=== PATIENT | male | born 1990 | race Caucasian/White ===

== ENCOUNTER 2016-05-03 09:35 | Emergency (ER) | payer OTHER ==
[2016-05-03 09:47] VITALS: BP 144/93; PULSE 91; O2SAT 97
[2016-05-03] MEDS ORDERED: CLEOCIN 150 MG CAPSULE PO ONE (09:58)
[2016-05-03] MEDS ORDERED: NORCO 5/325 MG PO ONE (09:59)
[2016-05-03] MEDS ORDERED: CLEOCIN 150 MG CAPSULE ONE (10:03)
[2016-05-03] MEDS ORDERED: NORCO 5/325 MG ONE (10:03)
--- NOTE | 2016-05-03 10:05 | ERPHSYRPT ---
- History of Present Illness Time Seen by Provider: 05/03/16 09:59 Source: patient Exam Limitations: no limitations Patient Subjective Stated Complaint: PT COMLAINS OF RIGHT SIDE JAW AND FACIAL PAINX 3 DAYS. DENIES ANY TRAUMA TO THE SIDE OF HIS FACE. Triage Nursing Assessment: PT ALERT WARM AND DRY RESP EASY NON LABORED NO FACIAL SWELLING NOTED TO RIGHT SIDE OF FACE. Physician History: 25 y/o male comes to the ER with complaints of right sided jaw pain that started 3 days ago. Pt admits to having poor dentition and has had issues with tooth pain in the past. Pt describes the pain as sharp, constant, as high as 10/ 10 and not relieved by motrin. No fever or chills. Timing/Duration: gradual onset Severity: severe ENT Location: dental Prearrival Treatment: no prearrival treatment Modifying Factors: Improves With: nothing Associated Symptoms: denies symptoms Allergies/Adverse Reactions: Penicillins Allergy (Unknown, Verified 01/10/16 11:15) Home Medications: No Home Meds 1 [facility] UD 01/10/16 [History] Hx Tetanus, Diphtheria Vaccination/Date Given: Yes Hx Influenza Vaccination/Date Given: No Hx Pneumococcal Vaccination/Date Given: No Immunizations Up to Date: Yes - Review of Systems Constitutional: No Fever, No Chills Eyes: No Symptoms Ears, Nose, & Throat: No Symptoms, Mouth Pain Respiratory: No Cough, No Dyspnea Cardiac: No Chest Pain, No Edema, No Syncope Abdominal/Gastrointestinal: No Abdominal Pain, No Nausea, No Vomiting, No Diarrhea Genitourinary Symptoms: No Dysuria Musculoskeletal: No Back Pain, No Neck Pain Skin: No Rash Neurological: No Dizziness, No Focal Weakness, No Sensory Changes Psychological: No Symptoms Endocrine: No Symptoms All Other Systems: Reviewed and Negative - Past Medical History Pertinent Past Medical History: Yes Neurological History: No Pertinent History ENT History: No Pertinent History Cardiac History: Hypertension Respiratory History: No Pertinent History Endocrine Medical History: No Pertinent History Musculoskeletal History: No Pertinent History GI Medical History: No Pertinent History History: No Pertinent History Psycho-Social History: No Pertinent History Male Reproductive Disorders: No Pertinent History Other Medical History: HTN - Past Surgical History Past Surgical History: No Neuro Surgical History: No Pertinent History Cardiac: No Pertinent History Respiratory: No Pertinent History Gastrointestinal: No Pertinent History Genitourinary: No Pertinent History Musculoskeletal: No Pertinent History Male Surgical History: No Pertinent History - Social History Smoking Status: Never smoker How long have you smoked: 7 YRS. Exposure to second hand smoke: No Drug Use: none Patient Lives Alone: No - Nursing Vital Signs Nursing Vital Signs: Initial Vital Signs Temperature 98.1 F Temperature Source Oral Pulse Rate 91 Respiratory Rate 18 Blood Pressure [Right Arm] 144/93 Pain Intensity 9 - Physical Exam General Appearance: moderate distress, alert Eye Exam: bilateral eye: PERRL, EOMI Nasal Exam: normal inspection Throat Exam: pharynx normal, dental tenderness, moist mucus membranes, No tonsillar exudate Neck Exam: supple Cardiovascular/Respiratory Exam: normal breath sounds, regular rate/rhythm Abdominal Exam: non-tender, soft Neurologic Exam: alert, oriented x 3, sensation nml, No motor deficits Skin Exam: normal color, warm, dry SpO2: 97 Oxygen Delivery: Room Air - Course Nursing assessment & vital signs reviewed: Yes Ordered Tests: Medication Summary Generic Name Dose Route Start Last Admin Trade Name Freq PRN Reason Stop Dose Admin Acetaminophen/Hydrocodone Bitart 1 tab 05/03/16 09:59 [place] 5/325 Mg PO 05/03/16 10:00 STAT ONE Clindamycin HCl 150 mg 05/03/16 09:58 Cleocin 150 Mg Capsule PO 05/03/16 09:59 STAT ONE - Progress Progress: unchanged Progress Note: 05/03/16 10:02 Pt has tooth infection and will be d/c home on clindamycin and norco for pain. Pt has agreed to F/U with a dentist. - Departure Time of Disposition: 10:02 Departure Disposition: Home Clinical Impression: Dental infection Condition: Stable Critical Care Time: No Instructions: Tooth Decay Additional Instructions: Follow up with your dentist in the next 3-4 days. Finish the antibiotics until completion. Prescriptions: Hydrocodone Bit/Acetaminophen [[place] 5-325 Tablet] 1 each PO Q6H PRN PRN #15 tablet PRN Reason: Pain Clindamycin HCl 150 mg PO TID #29 capsule
== END 2016-05-03 10:26 | disposition home or self-care (01) ==
LOC: ED 09:35
DX: K04.7 Periapical abscess without sinus (principal)
CPT/HCPCS: 99281; 99282; 99283

== ENCOUNTER 2020-12-05 14:26 | Emergency (ER) | payer OTHER, SELFPAY ==
--- NOTE | 2020-12-05 15:03 | ERPHSYRPT ---
- History of Present Illness Time Seen by Provider: 12/05/20 14:55 Source: patient Exam Limitations: no limitations Patient Subjective Stated Complaint: Patient c/o right jaw pain. States he can't eat due to the pain. He called Dr. Dennison but states he can't get an a ppointment until the end of December. Patient states that Dr. Dennison instructed him that his tooth could not be removed as long as it is infected and that he needed to see his MD. Triage Nursing Assessment: Patient walked back to ER room per self without difficulties. Patient alert and oriented and able to answer questions appropiately. Back right tooth with noted cavities. Tooth is brown/yellow in color. Gums around tooth are swollen and inflammed. Physician History: Patient is a 30-year-old white male who presents with complaint of right jaw pain for several days. Initially the pain was so generalized he cannot localize well but the pain has since localized to the right mandibular second molar. Timing/Duration: gradual onset Severity: severe ENT Location: mouth Prearrival Treatment: over the counter meds Modifying Factors: Improves With: nothing Associated Symptoms: jaw pain, tooth pain Allergies/Adverse Reactions: Penicillins Allergy (Unknown, Verified 12/05/20 14:49) Home Medications: No Home Meds [No Home Meds] 1 ea UD 01/10/16 [History] Trazodone HCl 100 mg PO HS 12/05/20 [History] armodafiniL [Armodafinil] 50 mg PO DAILY 12/05/20 [History] Hx Tetanus, Diphtheria Vaccination/Date Given: Yes Hx Influenza Vaccination/Date Given: No Hx Pneumococcal Vaccination/Date Given: No Immunizations Up to Date: Yes Travel Risk - International Travel Have you traveled outside of the country in past 3 weeks: No - Coronavirus Screening Are you exhibiting any of the following symptoms?: No Close contact with a COVID-19 positive Pt in past 14-21 Days: No - Vaccine Status Have you recieved a Covid-19 vaccination: No - Review of Systems Constitutional: No Fever, No Chills Eyes: No Symptoms Ears, Nose, & Throat: No Symptoms Respiratory: No Cough, No Dyspnea Cardiac: No Chest Pain, No Edema, No Syncope Abdominal/Gastrointestinal: No Abdominal Pain, No Nausea, No Vomiting, No D iarrhea Genitourinary Symptoms: No Dysuria Musculoskeletal: No Back Pain, No Neck Pain Skin: No Rash Neurological: No Dizziness, No Focal Weakness, No Sensory Changes Psychological: No Symptoms Endocrine: No Symptoms All Other Systems: Reviewed and Negative - Past Medical History Pertinent Past Medical History: Yes Neurological History: No Pertinent History ENT History: No Pertinent History Cardiac History: Hypertension Respiratory History: No Pertinent History Endocrine Medical History: No Pertinent History Musculoskeletal History: No Pertinent History GI Medical History: No Pertinent History History: No Pertinent History Psycho-Social History: No Pertinent History Male Reproductive Disorders: No Pertinent History Other Medical History: HTN, Insomnia - Past Surgical History Past Surgical History: No Neuro Surgical History: No Pertinent History Cardiac: No Pertinent History Respiratory: No Pertinent History Gastrointestinal: No Pertinent History Genitourinary: No Pertinent History Musculoskeletal: No Pertinent History Male Surgical History: No Pertinent History - Social History Smoking Status: Current every day smoker How long have you smoked: 8-10 years Exposure to second hand smoke: No Drug Use: none Patient Lives Alone: No - Nursing Vital Signs Nursing Vital Signs: Initial Vital Signs Temperature 97.2 F 12/05/20 14:34 Pulse Rate 93 H 12/05/20 14:34 Respiratory Rate 20 12/05/20 14:34 Blood Pressure 157/107 12/05/20 14:34 O2 Sat by Pulse Oximetry 96 12/05/20 14:34 Pain Scale Pain Intensity 10 - Physical Exam General Appearance: mild distress, alert Eye Exam: bilateral eye: PERRL, EOMI Nasal Exam: normal inspection Throat Exam: pharynx normal, dental tenderness (Dental tenderness over the mandibular right posterior area excessive drooling), moist mucus membranes, No tonsillar exudate Neck Exam: supple Cardiovascular/Respiratory Exam: normal breath sounds, regular rate/rhythm Abdominal Exam: non-tender, soft Neurologic Exam: alert, oriented x 3, sensation nml, No motor deficits Skin Exam: normal color, warm, dry SpO2: 96 - Course Nursing assessment & vital signs reviewed: Yes - Progress Progress: unchanged - Departure Departure Disposition: Home Clinical Impression: Dental abscess Condition: Stable Critical Care Time: No Referrals: AYO CORTES MD [Primary Care Provider] - Instructions: Dental Pain (DC) Prescriptions: clindamycin HCL [Cleocin HCl] 300 mg PO TID 7 Days #21 Lidocaine HCl [Lidocaine HCl Viscous] 20 mg MM Q2H PRN 3 Days #20 ml PRN Reason: Pain Diclofenac Sodium 50 mg [Voltaren 50 mg] 50 mg PO Q8H PRN 5 Days #15 PRN Reason: Pain
[2020-12-05 15:13] VITALS: BP 138/84; PULSE 84; O2SAT 98
== END 2020-12-05 15:13 | disposition home or self-care (01) ==
LOC: ED 14:26
DX: K04.7 Periapical abscess without sinus (principal)
CPT/HCPCS: 99283

== ENCOUNTER 2021-05-16 13:32 | Emergency (ER) | payer OTHER ==
[2021-05-16 13:42] VITALS: O2SAT 98
[2021-05-16] MEDS ORDERED: TORAdol 30 mg Injection ONE (13:56)
[2021-05-16] MEDS: TORAdol 30 mg Injection IM ONE (13:57)
--- NOTE | 2021-05-16 14:09 | ERPHSYRPT ---
- History of Present Illness Source: patient Exam Limitations: no limitations Patient Subjective Stated Complaint: pt here for pain to left side of neck and left shoulder, he states he fell on trailer this morning Triage Nursing Assessment: pt alert, resp easy, skin w/d/p, face mask in place, no swelling noted, has tendeness Physician History: 30 yo wm cc of L shoulder pain after near fall at friend's house while holding a chain w his L hand. Pt is R handed and has a h/o L clavicle fx in the past. He did not hit the ground and denies head injury/cervical injury/T-Lspine injury/hip injury/LE injury. Chest pain/dyspnea is denied. Occurred: hours ago (3 hrs ago) Method of Injury: fell (Near fall) Quality: aching Severity of Pain-Max: moderate Severity of Pain-Current: moderate Extremities Pain Location: shoulder: left Modifying Factors: Improves With: movement Associated Symptoms: No back pain, No chills, No chest discomfort, No chest pain, No dyspnea, No fever, No jaw pain, No nausea, No neck pain, No sweating, No short of breath, No vomiting Allergies/Adverse Reactions: Penicillins Allergy (Unknown, Verified 05/16/21 13:43) Home Medications: Trazodone HCl 100 mg PO HS 12/05/20 [History] Dextroamphetamine/Amphetamine [Adderall 7.5 mg Tablet] 1 ea DAILY 05/16/21 [History] Hx Tetanus, Diphtheria Vaccination/Date Given: No Hx Influenza Vaccination/Date Given: No Hx Pneumococcal Vaccination/Date Given: No Immunizations Up to Date: Yes Travel Risk - International Travel Have you traveled outside of the country in past 3 weeks: No - Coronavirus Screening Are you exhibiting any of the following symptoms?: No Close contact with a COVID-19 positive Pt in past 14-21 Days: No - Vaccine Status Have you recieved a Covid-19 vaccination: No - Review of Systems Constitutional: No Symptoms Eyes: No Symptoms Ears, Nose, & Throat: No Symptoms Respiratory: No Symptoms Cardiac: No Symptoms Abdominal/Gastrointestinal: No Symptoms Genitourinary Symptoms: No Symptoms Skin: No Symptoms Neurological: No Symptoms Psychological: No Symptoms Endocrine: No Symptoms Hematologic/Lymphatic: No Symptoms Immunological/Allergic: No Symptoms - Past Medical History Pertinent Past Medical History: Yes Neurological History: No Pertinent History ENT History: No Pertinent History Cardiac History: Hypertension Respiratory History: No Pertinent History Endocrine Medical History: No Pertinent History Musculoskeletal History: No Pertinent History GI Medical History: No Pertinent History History: No Pertinent History Psycho-Social History: No Pertinent History Male Reproductive Disorders: No Pertinent History Other Medical History: HTN, Insomnia - Past Surgical History Past Surgical History: No Neuro Surgical History: No Pertinent History Cardiac: No Pertinent History Respiratory: No Pertinent History Gastrointestinal: No Pertinent History Genitourinary: No Pertinent History Musculoskeletal: No Pertinent History Male Surgical History: No Pertinent History - Social History Smoking Status: Current every day smoker How long have you smoked: 8-10 years Exposure to second hand smoke: No Drug Use: none Patient Lives Alone: No Significant Family History: no pertinent family hx - Nursing Vital Signs Nursing Vital Signs: Initial Vital Signs Temperature 97.2 F 05/16/21 13:37 Pulse Rate 97 H 05/16/21 13:37 Respiratory Rate 18 05/16/21 13:37 Blood Pressure 167/111 05/16/21 13:37 O2 Sat by Pulse Oximetry 98 05/16/21 13:37 Pain Scale Pain Intensity 4 Hypertensive - Physical Exam General Appearance: no apparent distress Eyes, Ears, Nose, Throat Exam: normal ENT inspection, TMs normal, pharynx normal, moist mucous membranes Neck Exam: normal inspection, non-tender (C-spine NTTP), No supple, No full range of motion, No Brudzinski, No Kernig's, No meningismus Cardiovascular/Respiratory Exam: chest non-tender, normal breath sounds, regular rate/rhythm, heart sounds normal Abdominal Exam: non-tender, soft, no organomegaly Back Exam: normal inspection, normal range of motion, vertebral tenderness (No T-Lspine TTP), No CVA tenderness Shoulder Exam: pain (TTP superior border of L scapula,L posterior cervical musculature, and medial border of L scapula/Pain w abduction/Minimal pain w external rotation/Good radial pulse, distal sensatrion, and capillary return) Elbow/Forearm Exam: normal inspection Hand Exam: normal inspection DTR - Upper Extremity Exam: bicep (R): 2+, bicep (L): 2+ Neuro/Tendon Exam: normal sensation, normal motor functions, normal tendon functions, responds to pain, no evidence tendon injury, No motor deficit, No sensory deficit Mental Status Exam: alert, oriented x 3, cooperative Skin Exam: normal color, warm, dry SpO2 Interpretation: normal SpO2: 98 O2 Delivery: Room Air - Course Nursing assessment & vital signs reviewed: Yes - Radiology Exams Shoulder X-ray Interpretation: Discussed w/ radiologist (L shoulder neg for acute injury/Old clavicular fx) Ordered Tests: Active Orders 24 hr Category Date Time Status Sling Application STAT Care 05/16/21 14:35 Completed SHOULDER Stat Exams 05/16/21 Completed Medication Summary Discontinued Medications Generic Name Dose Route Start Last Admin Trade Name Freq PRN Reason Stop Dose Admin Ketorolac Tromethamine 60 mg 05/16/21 13:54 05/16/21 13:57 Ketorolac Tromethamine 30 Mg/Ml Inj IM 05/16/21 13:55 60 mg STAT ONE Administration Ketorolac Tromethamine Confirm 05/16/21 13:56 Ketorolac Tromethamine 30 Mg/Ml Inj Administered 05/16/21 13:57 Dose 60 mg .ROUTE .STK-MED ONE - Progress Progress: improved Progress Note: 05/16/21 14:32 60mg IM Toradol Sling per nursing/NVI 05/16/21 20:04 Pt wants to f/u w PCP about BP and does not want treatment at this time Counseled pt/family regarding: diagnosis, need for follow-up, rad results - Departure Departure Disposition: Home Clinical Impression: Left shoulder strain, Trapezius muscle strain, Hypertension Condition: Stable Critical Care Time: No Referrals: DOCTOR,NO FAMILY [Primary Care Provider] - Follow up/PCP as directed ORTHO - LOYDA ORO NP [NON-STAFF PHY W/O PRIVILEGES] - Follow up/PCP as directed Instructions: Shoulder Sprain (DC) Additional Instructions: Ice to shoulder for 12-24 hours Heat after 24 hours Lodine/Norflex for pain Follow up w [facility] M-Fr 8-10AM No lifting over 10 lbs w left arm until cleared by ortho clinic Forms: Work/School Release Form Prescriptions: Etodolac 400 mg [Lodine 400 mg] 400 mg PO BID PRN PRN #14 tablet PRN Reason: Pain Orphenadrine Citrate 100 mg [Norflex 100 MG Tablet] 100 mg PO BID PRN #14 tab PRN Reason: Pain
--- NOTE | 2021-05-16 14:24 | XRAY ---
Indication: Pain following fall. Comparison: June 17, 2020. 3 view left shoulder again demonstrates old clavicle shaft fracture and left lung calcified granuloma. No new/acute bony, articular, or soft tissue abnormalities.
[2021-05-16 14:36] VITALS: PULSE 94
[2021-05-16 14:37] VITALS: BP 161/111
== END 2021-05-16 14:48 | disposition home or self-care (01) ==
LOC: ED 13:32
DX: S46.912A Strain of unspecified muscle, fascia and tendon at shoulder and upper arm level, left arm, initial encounter (principal); S29.012A Strain of muscle and tendon of back wall of thorax, initial encounter; X50.0XXA Overexertion from strenuous movement or load, initial encounter; I10 Essential (primary) hypertension; Z79.899 Other long term (current) drug therapy
CPT/HCPCS: 73030; 96372; 99284; J1885

== ENCOUNTER 2021-07-20 12:30 | Emergency (ER) | payer OTHER ==
[2021-07-20] MEDS ORDERED: KEFLEX 500 MG PO ONE (13:13)
[2021-07-20] MEDS ORDERED: Adacel Vial IM ONE ×2 (13:13→13:32)
--- NOTE | 2021-07-20 13:19 | ERPHSYRPT ---
- History of Present Illness Time Seen by Provider: 07/20/21 12:45 Source: patient Exam Limitations: no limitations Patient Subjective Stated Complaint: Pt states "I was carrying my new windows and I stumbled and tried to push my away and my hand went through it." Triage Nursing Assessment: Pt presented alert and oriented x 3, skin pw Pt ambulates with an upright steady gait, able to sepak in ella full senteneces. Pt has laceration noted to his left thumb on knuckle Physician History: This is a right-handed 31-year-old white male who fell into a window on outstretched hand by accident suffering a laceration to his left thumb. Patient states he is not up-to-date on his tetanus status. Patient also states that he is allergic to penicillin but has taken Keflex in the past. Patient has no other injuries. Occurred: just prior to arrival Quality: constant, throbbing Severity of Pain-Max: moderate Severity of Pain-Current: moderate Extremities Pain Location: thumb: left Modifying Factors: Improves With: movement Associated Symptoms: none Allergies/Adverse Reactions: Penicillins Allergy (Unknown, Verified 05/16/21 13:43) Home Medications: Trazodone HCl 100 mg PO HS 12/05/20 [History] Dextroamphetamine/Amphetamine [Adderall 7.5 mg Tablet] 1 ea DAILY 05/16/21 [History] Hx Tetanus, Diphtheria Vaccination/Date Given: No Hx Influenza Vaccination/Date Given: No Hx Pneumococcal Vaccination/Date Given: No Immunizations Up to Date: Yes Travel Risk - International Travel Have you traveled outside of the country in past 3 weeks: No - Coronavirus Screening Are you exhibiting any of the following symptoms?: No Close contact with a COVID-19 positive Pt in past 14-21 Days: No - Vaccine Status Have you recieved a Covid-19 vaccination: No - Review of Systems Constitutional: No Symptoms Eyes: No Symptoms Ears, Nose, & Throat: No Symptoms Respiratory: No Symptoms Cardiac: No Symptoms Abdominal/Gastrointestinal: No Symptoms Genitourinary Symptoms: No Symptoms Musculoskeletal: Injury (left thumb) Skin: Other (laceration, dorsal aspect left thumb) Neurological: No Symptoms Psychological: No Symptoms Endocrine: No Symptoms Hematologic/Lymphatic: No Symptoms Immunological/Allergic: No Symptoms All Other Systems: Reviewed and Negative - Past Medical History Pertinent Past Medical History: Yes Neurological History: No Pertinent History ENT History: No Pertinent History Cardiac History: Hypertension Respiratory History: No Pertinent History Endocrine Medical History: No Pertinent History Musculoskeletal History: No Pertinent History GI Medical History: No Pertinent History History: No Pertinent History Psycho-Social History: No Pertinent History Male Reproductive Disorders: No Pertinent History Other Medical History: HTN, Insomnia - Past Surgical History Past Surgical History: No Neuro Surgical History: No Pertinent History Cardiac: No Pertinent History Respiratory: No Pertinent History Gastrointestinal: No Pertinent History Genitourinary: No Pertinent History Musculoskeletal: No Pertinent History Male Surgical History: No Pertinent History - Social History Smoking Status: Current every day smoker How long have you smoked: 8-10 years Exposure to second hand smoke: No Drug Use: none Patient Lives Alone: No Significant Family History: no pertinent family hx - Nursing Vital Signs Nursing Vital Signs: Initial Vital Signs Temperature 98 F 07/20/21 12:34 Pulse Rate 120 H 07/20/21 12:34 Respiratory Rate 20 07/20/21 12:34 Blood Pressure 156/92 07/20/21 12:34 O2 Sat by Pulse Oximetry 95 07/20/21 12:34 Pain Scale Pain Intensity 5 - Physical Exam General Appearance: no apparent distress, alert, anxiety Eyes, Ears, Nose, Throat Exam: normal ENT inspection, moist mucous membranes Neck Exam: normal inspection, non-tender, supple, full range of motion Cardiovascular/Respiratory Exam: chest non-tender, no respiratory distress Abdominal Exam: non-tender Back Exam: normal inspection Shoulder Exam: normal inspection, non-tender, no evidence of injury, normal ROM Elbow/Forearm Exam: normal inspection, non-tender, no evidence of injury, normal ROM Wrist Exam: normal inspection, non-tender, no evidence of injury, normal ROM Hand Exam: laceration (1.5 cm dorsal aspect proximal left thumb), soft tissue tenderness, swelling (Mild venous oozing from the laceration site. Difficult to determine if patient has tendon injury secondary to painful flexion and extension of the thumb. After injection with lidocaine, he appears to be flexing and extending his left thumb more readily but not to a normal status.) Neuro/Tendon Exam: normal sensation, normal motor functions (Difficult to assess secondary to pain), normal tendon functions (Difficult to assess secondary to pain), responds to pain Mental Status Exam: alert, oriented x 3, cooperative Skin Exam: normal color, warm, dry SpO2 Interpretation: normal SpO2: 95 O2 Delivery: Room Air Procedures - Laceration/Wound Repair Left Dorsal Finger Time of Procedure: 12:55 Wound Location: Left, hand (Dorsal aspect left thumb) Wound Length (cm): 1.5 Wound's Depth, Shape: superficial Wound Explored: clean (No obvious foreign body. Assessment was performed to the base in a bloodless field.) Irrigated: Yes Hibiclens Prep: Yes Anesthesia: 1% Lidocaine Volume Anesthetic (ccs): 5 Wound Repaired With: sutures Suture Size/Type: 3-0, nylon Number of Sutures: 3 Layer Closure?: No - Course Nursing assessment & vital signs reviewed: Yes Ordered Tests: Active Orders 24 hr Category Date Time Status Wound Care STAT Care 07/20/21 13:09 Active HAND (MINIMUM 3 VIEWS) Stat Exams 07/20/21 13:13 Completed Medication Summary Discontinued Medications Generic Name Dose Route Start Last Admin Trade Name Freq PRN Reason Stop Dose Admin Cephalexin HCl 500 mg 07/20/21 13:13 07/20/21 13:33 Cephalexin Mh500 Mg Capsule PO 07/20/21 13:14 500 mg STAT ONE Administration Cephalexin HCl Confirm 07/20/21 13:31 Cephalexin Mh500 Mg Capsule Administered 07/20/21 13:32 Dose 500 mg .ROUTE .STK-MED ONE Diphtheria/Tetanus/Acell Pertussis 0.5 ml 07/20/21 13:13 07/20/21 13:35 Tdap --Diph,Pertuss(Acell),Tet Vac/Pf 0.5 Ml Vial IM 07/20/21 13:14 0.5 ml .ONCE ONE Administration Diphtheria/Tetanus/Acell Pertussis Confirm 07/20/21 13:32 Tdap --Diph,Pertuss(Acell),Tet Vac/Pf 0.5 Ml Vial Administered 07/20/21 13:33 Dose 0.5 ml IM .STK-MED ONE - Progress Progress: improved Progress Note: 07/20/21 14:13 X-ray left hand shows no acute fracture or dislocation. There is no evidence of foreign body. This study was read by the radiologist. 07/20/21 14:34 Medical decision making: I spoke with Dr. Sommers, hand surgeon at [facility][1], and reviewed the physical findings and my treatment plan as well as the results of the x-ray on this patient's left hand laceration. Patient is to follow-up in his office on 07/23/2021 at 1:[address] Sommers with the patient's name, birthdate and phone number. Counseled pt/family regarding: diagnosis, need for follow-up, rad results - Departure Departure Disposition: Home Clinical Impression: Thumb laceration Condition: Stable Critical Care Time: No Referrals: AYO CORTES MD [Primary Care Provider] - Follow up/PCP as directed Instructions: Wound Care (DC), Laceration Repair With Stitches (DC) Additional Instructions: Follow-up with hand surgeon as discussed and arranged for you. Dr. Sommers, hand surgeon [facility][1] 1:45 PM on 07/23/2021. Take your medication as prescribed. Forms: Work/School Release Form Prescriptions: Hydrocodone/APAP 5/325 [[place] 5/325 mg] 1 each PO Q8H PRN PRN #6 tablet MDD 3 PRN Reason: Pain Cephalexin Mh 500 mg [Keflex 500 mg] 500 mg PO TID #15 cap
[2021-07-20] MEDS ORDERED: KEFLEX 500 MG ONE (13:31)
--- NOTE | 2021-07-20 13:58 | XRAY ---
Indication: Thumb laceration. Foreign body. Comparison: None 3 view left hand obtained. No bony, articular, or soft tissue abnormalities.
[2021-07-20 14:36] VITALS: BP 130/79; PULSE 82
[2021-07-20 14:39] VITALS: O2SAT 95
== END 2021-07-20 14:59 | disposition home or self-care (01) ==
LOC: ED 12:30
DX: S61.012A Laceration without foreign body of left thumb without damage to nail, initial encounter (principal); W01.198A Fall on same level from slipping, tripping and stumbling with subsequent striking against other object, initial encounter; M79.645 Pain in left finger(s); I10 Essential (primary) hypertension; Z72.0 Tobacco use; Z79.891 Long term (current) use of opiate analgesic; Z79.899 Other long term (current) drug therapy
CPT/HCPCS: 12001; 73130; 90471; 90715; 99284; A9270-GY